=== PATIENT | female | born 1940 | race Caucasian/White ===

== ENCOUNTER → 2018-09-15 | Outpatient (CLI) | payer MEDICARE, OTHER ==
[2018-09-15 15:08] LABS: ABG BASE EXCESS 2.1 MMOL/L (-2.5-2.5); ABG OXYGEN SATURATION 97 % (94-100); ABG PCO2 34 MMHG (35-45); ABG PH 7.49 (7.37-7.43); ABG PO2 85 MMHG (79-93); ABG TCO2 26.5 MMOL/L (21.0-31.0)
[2018-09-15 15:10] LABS: ALLENS TEST POSITIVE; PATIENT TEMP 97.2; VENTILATOR NO
== END ==
LOC: RT 14:38
PROVIDERS: ATTEND Nurse Practitioner Family
DX: J44.9 Chronic obstructive pulmonary disease, unspecified (principal); R60.9 Edema, unspecified; E66.01 Morbid (severe) obesity due to excess calories; J30.2 Other seasonal allergic rhinitis; G47.30 Sleep apnea, unspecified
CPT/HCPCS: 36600; 82805; 94761

== ENCOUNTER → 2018-09-23 | Outpatient (CLI) | payer MEDICARE, OTHER ==
[~2018-09-23] MED LIST: CATHETER FLUSH 10 ML SYR IV PRN; IOHEXOL 350 MG/ML 150 ML (OMNIPAQUE 350) VIAL IV ONE; NS 100 ML (IVPB) BAG IV ONE; RECEIVED CONTRAST (Hold Metformin) IV SCH
[2018-09-23 11:33] LABS: BUN/CREATININE RATIO 14; CREATININE SERUM 0.83 MG/DL (0.60-1.30); GFR ESTIMATED > 60
--- NOTE | 2018-09-23 11:48 | Diagnostic Imaging Report ---
PROCEDURE: US Venous Lower Ext Meir. TECHNIQUE: Multiple real-time grayscale images were obtained over the lower extremities in various projections, bilaterally. Additional duplex Doppler and color Doppler images were also obtained. INDICATION: Bilateral leg swelling. There are no prior studies available for comparison. There is generally good blood flow and compressibility at all levels of the deep venous system of each lower extremity. There is no sign of a deep venous thrombosis. IMPRESSION: There is no evidence for a deep venous stenosis of either lower extremity. Dictated by: Dictated on workstation # [id number]
--- NOTE | 2018-09-23 12:23 | Diagnostic Imaging Report ---
PROCEDURE: CT angiography of the chest with contrast. TECHNIQUE: Multiple contiguous axial images were obtained through the chest after uneventful bolus administration of intravenous contrast. 2D reconstructed CTA MIP acquisitions were also performed. INDICATION: Respiratory distress. FINDINGS: There are no prior exams available for comparison. There is no defect within the pulmonary arteries to indicate a pulmonary embolus. The aorta is not abnormally dilated and there is no sign of a dissection. The heart size is within normal limits. Coronary artery calcifications are noted. There is a 6.4 mm calcified nodule in the left apex. This is most likely a benign process such as a granuloma. The lungs are otherwise clear. There is no sign of failure, pneumonia, or pleural effusion to indicate an acute abnormality. There is no mediastinal or hilar adenopathy. The thyroid gland does not appear to be enlarged. There is a 2.0 x 2.6 cm low-density nodule along the lateral aspect of the right lobe of the thyroid. Ultrasound will be recommended to better characterize this finding. There is no obvious breast mass. The sections through the upper abdomen fail to show any sign of an acute abnormality. The upper abdomen is difficult to evaluate however due to motion artifact. The bone windows show no sign of a fracture or of a destructive lesion. IMPRESSION: 1. There is no evidence for an acute cardiopulmonary abnormality. In particular, there is no sign of a pulmonary embolus. 2. There appears to be a 2.0 x 2.6 cm low-density nodule along the lateral aspect of the right lobe of the thyroid. Ultrasound will be recommended for further evaluation. 3. There is coronary artery disease. Dictated by: Dictated on workstation # [id number]
== END ==
LOC: RAD 10:56
PROVIDERS: ATTEND Nurse Practitioner Family
DX: I25.10 Atherosclerotic heart disease of native coronary artery without angina pectoris (principal); M79.89 Other specified soft tissue disorders; J44.9 Chronic obstructive pulmonary disease, unspecified; E66.01 Morbid (severe) obesity due to excess calories; G47.30 Sleep apnea, unspecified; J30.2 Other seasonal allergic rhinitis
CPT/HCPCS: 36415; 71275; 82565; 84520; 93970

== ENCOUNTER → 2019-07-29 | Outpatient (CLI) | payer MEDICARE, OTHER ==
[~2019-07-29] MED LIST changes: -CATHETER FLUSH 10 ML SYR IV PRN; -IOHEXOL 350 MG/ML 150 ML (OMNIPAQUE 350) VIAL IV ONE; -NS 100 ML (IVPB) BAG IV ONE; -RECEIVED CONTRAST (Hold Metformin) IV SCH; +RT-ALBUTEROL SULF 2.5 MG/3 ML PRE-MIX VIAL INH ONE
== END ==
LOC: RT 10:06
PROVIDERS: ATTEND Nurse Practitioner Family
DX: J44.9 Chronic obstructive pulmonary disease, unspecified (principal)
CPT/HCPCS: 94060; 94726; 94729